=== PATIENT | male | born 1930 | race Caucasian/White ===

== ENCOUNTER 2016-09-29 11:02 | Emergency (ER) | payer MEDICARE, OTHER ==
--- NOTE | 2016-09-29 12:46 | RAD ---
INDICATION: Trauma. COMPARISON: There are no prior studies available for comparison. TECHNIQUE: AP and lateral views of the chest were obtained. FINDINGS: The heart is moderately enlarged. The lungs are underinflated. There is minimal increased density at both lung bases most consistent with atelectasis. No pneumothorax or pleural effusion is appreciated. IMPRESSION: CARDIOMEGALY.
[2016-09-29 13:03] LABS: Hematocrit 28 % (42-52); Hemoglobin 8.5 g/dl (14.0-18.0); Mean Corpuscular HGB Conc 30 g/dl (31-36); Mean Corpuscular Hemoglobin 27 pg (27-31); Mean Corpuscular Volume 90 fL (80-94); Mean Platelet Volume 8 um3 (7.4-10.4); Red Blood Count 3.14 10^6/ul (4.0-5.4); Red Cell Distribution Width 19 % (10.5-15); White Blood Count 7.5 10^3/ul (3.5-10.8)
[2016-09-29 13:12] LABS: Add Diff/Slide Review? Slide Review Added; Comments Flag Yes
[2016-09-29 13:14] LABS: Albumin 2.8 g/dL (3.2-5.2); BUN/Creatinine Ratio 18.7 (8-20); C Reactive Protein 21.77 mg/L (< 5.00); Calcium 8.1 mg/dL (8.6-10.3); EGFR African American 72.3 (>60); EGFR Non-African American 56.2 (>60); Globulin 3.1 g/dL (2-4); Total Bilirubin 0.9 mg/dL (0.2-1.0); Total Protein 5.9 g/dL (6.4-8.9)
[2016-09-29 14:49] VITALS: BP 94/67
[2016-09-29 15:28] LABS: Potassium 4.4 mmol/L (3.5-5.0)
--- NOTE | 2016-09-29 16:17 | ED ---
Regla Olguin Thomas, scribed for Wing Tejada MD on 09/29/16 at 1118 . Lower Extremity - HPI Summary HPI Summary: The pt is an 85 y/o M presenting to the ED c/o R leg pain s/p a fall one week ago when he tipped his scooter over. The pain is rated 8/10. The pain is aggravated and alleviated by nothing. Today, the patient took a Tylenol at 08: 00 and an oxycodone at 10:00. Pt additionally c/o a wound on his R leg and ecchymosis to R razo, and SOB. The wound has become progressively darker in the last few days. PMHx: DM, CAD, Alzheimers, A-Fib. PSHx: 11 cardiac stents. The patient broke some of his ribs 8 days ago. He was taken off of Plavix and Coumadin recently. - History of Current Complaint Chief Complaint: EDExtremityLower Stated Complaint: RT LEG PAIN Time Seen by Provider: 09/29/16 11:16 Hx Obtained From: Patient Mechanism Of Injury: Fall From A Standing Position Onset of Pain: Immediate Onset/Duration: Still Present - one week Pain Intensity: 8 Pain Scale Used: 0-10 Numeric Timing: Constant Associated Signs And Symptoms: Positive: Bruising - to R razo, Other - POS: SOB , wound on R leg. Negative: Fever Aggravating Factor(s): Nothing Alleviating Factor(s): Nothing - Allergies/Home Medications Allergies/Adverse Reactions: Allergies Allergy/AdvReac Type Severity Reaction Status Date / Time No Known Allergies Allergy Verified 09/29/16 11:07 PMH/Surg Hx/FS Hx/Imm Hx Previously Healthy: No Endocrine/Hematology History: Reports: Hx Diabetes Cardiovascular History: Reports: Hx Atrial Fibrillation, Hx Coronary Artery Disease Neurological History: Reports: Hx Dementia - Alzheimer's - Surgical History Surgery Procedure, Year, and Place: 11 cardiac stents Infectious Disease History: Denies: Traveled Outside the [place] in Last 30 Days - Family History Known Family History: Positive: Other - POS: [place] Negative: Diabetes - Social History Alcohol Use: None Substance Use Type: Reports: None Review of Systems Negative: Fever Positive: Shortness Of Breath Positive: Other - POS: R leg pain (s/p fall one week ago) Positive: Other - POS: wound on R leg All Other Systems Reviewed And Are Negative: Yes Physical Exam Triage Information Reviewed: Yes Vital Signs On Initial Exam: Initial Vitals Temp Pulse Resp BP Pulse Ox 98.3 F 87 20 92/54 97 09/29/16 11:07 09/29/16 11:07 09/29/16 11:07 09/29/16 11:07 09/29/16 11:07 Vital Signs Reviewed: Yes Appearance: Positive: Well-Appearing, No Pain Distress Skin: Positive: Warm, Skin Color Reflects Adequate Perfusion, Dry, Other - There is a clean-looking, 10cm x 6 cm wound on his R leg. Subcutaneous and granulation tissue is visible. There is a 6cm x 3cm black eschar in the center. Head/Face: Positive: Normal Head/Face Inspection Eyes: Positive: Normal ENT: Positive: Normal ENT inspection Neck: Positive: Supple, Nontender Respiratory/Lung Sounds: Positive: Clear to Auscultation, Breath Sounds Present Cardiovascular: Positive: RRR Abdomen Description: Positive: Nontender, Soft Bowel Sounds: Positive: Present Musculoskeletal: Positive: Normal Neurological: Positive: Normal Psychiatric: Positive: Normal, Affect/Mood Appropriate Diagnostics - Vital Signs Vital Signs Temp Pulse Resp BP Pulse Ox 09/29/16 11:07 98.3 F 87 20 92/54 97 - Laboratory Lab Results: Lab Results 09/29/16 09/29/16 09/29/16 Range/Units 12:45 12:45 12:45 WBC 7.5 (3.5-10.8) 10^3/ul RBC 3.14 L (4.0-5.4) 10^6/ul Hgb 8.5 L (14.0-18.0) g/dl Hct 28 L (42-52) % MCV 90 (80-94) fL MCH 27 (27-31) pg MCHC 30 L (31-36) g/dl RDW 19 H (10.5-15) % Plt Count 173 (150-450) 10^3/ul MPV 8 (7.4-10.4) um3 Neut % (Auto) 80.2 (38-83) % Lymph % (Auto) 6.7 L (25-47) % Lanier % (Auto) 9.4 H (1-9) % Eos % (Auto) 2.9 (0-6) % Baso % (Auto) 0.8 (0-2) % Absolute Neuts (auto) 6.0 (1.5-7.7) 10^3/ul Absolute Lymphs (auto) 0.5 L (1.0-4.8) 10^3/ul Absolute Monos (auto) 0.7 (0-0.8) 10^3/ul Absolute Eos (auto) 0.2 (0-0.6) 10^3/ul Absolute Basos (auto) 0.1 (0-0.2) 10^3/ul Absolute Nucleated RBC 0 10^3/ul Nucleated RBC % 0 Sodium 138 (133-145) mmol/L Potassium 4.4 (3.5-5.0) mmol/L Chloride 104 (101-111) mmol/L Carbon Dioxide 30 (22-32) mmol/L Anion Gap 4 (2-11) mmol/L BUN 23 (6-24) mg/dL Creatinine 1.23 H (0.67-1.17) mg/dL Est GFR ( Amer) 72.3 (>60) Est GFR (Non-Af Amer) 56.2 (>60) BUN/Creatinine Ratio 18.7 (8-20) Glucose 90 (70-100) mg/dL Lactic Acid 1.3 (0.5-2.0) mmol/L Calcium 8.1 L (8.6-10.3) mg/dL Total Bilirubin 0.90 (0.2-1.0) mg/dL AST 17 (13-39) U/L ALT 13 (7-52) U/L Alkaline Phosphatase 40 (34-104) U/L C-Reactive Protein 21.77 H (< 5.00) mg/L Total Protein 5.9 L (6.4-8.9) g/dL Albumin 2.8 L (3.2-5.2) g/dL Globulin 3.1 (2-4) g/dL Albumin/Globulin Ratio 0.9 L (1-3) Result Diagrams: 09/29/16 12:45 09/29/16 12:45 Lab Statement: Any lab studies that have been ordered have been reviewed, and results considered in the medical decision making process. - Radiology CXR Xray Interpretation: Positive (See Comments) - cardiomegaly Radiology Interpretation Completed By: Radiologist Lower Extremity Course/Dx - Course Course Of Treatment: Mr. 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 He had a black eschar in the middle of the wound that was removed by Dr. Baig and he was set up with F/U at the wound clinic. He had no leukocytosis but was found to quite anemic. Dr. Tom was contacted and his Hgb was noted to be 9.2 a few days ago. Dr. Sanabria will follow him for his anemia. - Diagnoses Provider Diagnoses: Chronic anemia, Leg wound, right - Physician Notifications Discussed Care Of Patient With: Raji Baig Time Discussed With Above Provider: 11:55 Instructed by Provider To: Other - Dr. Baig, surgery, came to the ED to evaluate the wound. He cleaned the wound as well. Discharge - Discharge Plan Condition: Stable Disposition: HOME Patient Education Materials: Chronic Wound Care (ED), Anemia (ED) Referrals: [facility] [Outside] - 7 Days The documentation as recorded by the Regla engel Thomas accurately reflects the service I personally performed and the decisions made by me, Wing Tejada MD.
--- NOTE | 2016-09-29 18:37 | CONS ---
CC: [facility] SURGICAL CONSULTATION REPORT AND PROCEDURE REPORT: DATE OF CONSULT: 09/29/16 LOCATION: The patient seen in the emergency room. HISTORY OF PRESENT ILLNESS: I was contacted by the emergency room physician, Dr. Tejada, regarding Mandie Chester, an 85-year-old gentleman, who recently suffered a fall that led to a 4-day admission a [facility]. The patient had rib fractures as well as a laceration to his right razo. Accor ding to the patient's family, the right razo wound was stapled and sutured together and dressed. Du ring his hospitalization, they did not see this, but it presumably was changed. After discharge, th e patient has been undergoing dressing care with his , who noted that the area became more black and painful. The patient has been requiring more narcotics for his discomfort and they presented t o the emergency room for evaluation of the increasingly painful wound and the changes at that leg. PAST MEDICAL HISTORY: The patient's past medical history was not reviewed but the patient's medicat ions were, he is on 81 mg of aspirin daily. He was taking Coumadin up until recently. He just stop ped Plavix. He has got coronary artery disease, status post multiple stenting. PAST SURGICAL HISTORY: No lower extremity surgeries in the past. No history of abdominal aneurysms . No history of DVT or PE. ADDITIONAL REVIEW OF SYSTEMS: No fevers or chills. No shortness of breath. Pain in the leg as melvi cribed above. Decreased ambulation secondary to the pain. The patient denies any drainage from the wound. Again, history of bleeding disorders with taking Coumadin and description of ecchymosis at the site 1 week ago. The patient is since off Coumadin. PHYSICAL EXAM: He is alert, he is oriented x3, somewhat confused at times; however, he is in minima l distress when he moves the right lower leg. PROCEDURE NOTE: Focused examination of that leg reveals palpable pulses in the groin without erythe ma or streaking of the leg. The lower leg wound on the right is posterior and approximately 8 x 4 c m eschar that has a central portion, that is, necrotic, purple, and sloughing off. This was bluntly debrided today with some pain. Specimen was not sent. The wound did not tunnel. It was approxima tely 1 cm deep. It involved skin and subcutaneous tissue, which is gone and I believe there is some muscle layer exposed. There is no cellulitis in the periwound skin. There is ecchymosis. He also has skin changes consistent with hemosiderin staining. Pulses are not palpable at DP and PT on both feet, but the patient does have 3- second cap refill. IMPRESSION: Traumatic wound 1 week ago at the right lower leg, primarily closed and the patient on Coumadin, likely had large hematoma that led to skin necrosis. Debridement performed today removing skin and subcutaneous tissue that was necrotic. Additional necrotic fat is exposed but this is more intact and I believe we will improve with serial dressings of moist to dry gauze and Kerlix. RECOMMENDATIONS: For CBC to rule out any elevated white blood cell count. The patient is still on antibiotics and we will continue the course of, I believe, Keflex. If he does have elevated white b lood cell count, I would recommend evaluation by the hospitalist as this is a late entry. The lab v alues did come back with a normal white count at 7.5 with no left shift. Also, recommended wound ca re followup with me next week and an appointment will be made for Sunday next week to see Mr. Abundio rojas. He can continue with moist to dry dressings with family and I went over the details with his w shea. Likely look towards a negative pressure wound therapy treatment with likelihood of advancing t o a split thickness skin graft as needed. TIME SPENT: Overall 35 minutes was spent with the patient and the patient's family going over the p fernando and performing the procedure. Their questions were answered and I discussed the case with the E R physician which will carry out the discharge. [id number]/[id number] #: [id number]
== END 2016-09-29 14:52 | disposition home or self-care (01) ==
LOC: ED 11:02
DX: S80.921A Unspecified superficial injury of right lower leg, initial encounter (principal); M79.604 Pain in right leg; R06.02 Shortness of breath; D64.9 Anemia, unspecified; X58.XXXA Exposure to other specified factors, initial encounter; Y93.89 Activity, other specified; Y92.89 Other specified places as the place of occurrence of the external cause
CPT/HCPCS: 36415; 71020; 80053; 83605; 85025; 86140; 87040; 99284